=== PATIENT | female | born 1990 | race Caucasian/White ===

== ENCOUNTER 2018-08-22 05:24 | Inpatient (IN) | payer MEDICAID ==
[2018-08-22] MEDS ORDERED: LR 1,000 ML IV ONE (06:02)
[2018-08-22] MEDS ORDERED: PREGABALIN 150 MG CAP PO ONE (06:22)
[2018-08-22] MEDS ORDERED: SCOPOLAMINE HYDROBROMIDE 1 MG/3 DAYS PATCH TD ONE (06:22)
[2018-08-22] MEDS ORDERED: TRANEXAMIC ACID 1,000 MG in NS 100 ML IV ONE (06:22)
[2018-08-22] MEDS ORDERED: ceFAZolin 2 GM/DEXTROSE 100 ML IV ONE (06:22)
[2018-08-22] MEDS ORDERED: ACETAMINOPHEN 500 MG TAB PO ONE (06:22)
--- NOTE | 2018-08-22 06:22 | PDGENHP ---
History and Physical - Chief Complaint LEFT HIP PAIN - History of Present Illness 1. Bilateral~Femoroacetabular impingement (VANESSA) Cam type, labral tears 2. Bilateral~Hip Dyplasia, L more symptomatic than R 3. 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 ~Ramsesenjoys hiking, kayaking, being outdoors. Elisabet's~bilateral~hip pain (L>R)~started 10 yrs ago, with~no~recalled trauma or injury, and with~no~previous complaints.~She does report W-sitting and being pigeon-toed.~Ramseshas~a known history of hip dysplasia. She was referred by Dr. Marshall's office. Presentation today is of~anterior~bilateral~hip pain deep inside, worse on the L. ~The hip~does~wake her~at night and~does~click and catch on~her. Sitting~can be uncomfortable~for her~if she does so for long periods of time.~Ramsesdoes~ report suffering from lower back pain episodes, which started after her hip symptoms and she localizes to her SI joint.~ Ramseshas~participated in physical therapy x2 months~and has~tried other conservative measures including massage therapy.~Kamala~has not~received sufficient symptomatic improvement. No previous hip injection. Ramseshas~utilized medication for pain management, including diclofenac, tylenol, ibuprofen.~Ramseshas used medication as needed since symptom onset. Ramsesunderstands that~kamala~has a hip and pelvis problem which should be researched and wishes to get a better understanding of~her~hip status, followed by an establishment of a treatment strategy, hoping~kamala~would be able to get back to~her~well being active life. History: Past medical history:~~ Patient~~has a past medical history of Cancer (HC code).~- hepatoblastoma, complete remission Relevant familial history:~Brother and grandfather - "shallow shoulder joints" Past surgical history:~ No. Surgery Anesthesia Year Outcome 1 Abdomen tumor and gallbladder removal General 1992 Good 2 Bone chip removal R elbow General 2000 Good Ramsesdescribes problematic issues with general anesthesia which includes emotional/combative when she awakens from anesthesia. I have reviewed, verified and agree with the past medical, surgical, family and social history. Current Medications:~has a current medication list which includes the following prescription(s): diclofenac. ALLERGIES:~is allergic to adhesive and penicillins. Objective: Physical Examination: Ramsesis 5~feet~2~inches tall and weighs~140~Lbs. Ramsesis AAO x3; she~is well-nourished, in NAD. Skin is warm and dry. ~Breathing is non-labored. ~CV with RRR by pulse. Abdomen is soft, NTND. Currently,~kamala~walks with a~normal~gait. Trendelenburg sign is~negative~and proprioception~is reduced,~both~sides. She~presents~with mild~signs of joint laxity.~Beightons Score:~3 (palms to floor , pinkys) Lower spine examination is~negative~for sciatic or femoral nerve irritation with negative~SLR &~femoral stretch tests. Range of motion of the spine is normal~for flexion, extension, and rotations,~with~associated pain in extension. Strength, Sensation and pulses are~normal -~bilaterally Ankles and knees exams are~normal~and~no~mal-alignment is evident.~ She~has~right~0.5~cm short leg length discrepancy. Thigh circumference is~symmetric~with no evidence for muscle atrophy~on both~ sides. Hip ROM (degrees): FL ER At 90~hip FL IR At 90~hip FL AB AD EX IR Neutral hip ER Neutral hip R 105 45 50 35 5 5 60 15 L 105 45 45 40 0 5 60 15 Specific hip and pelvis tests: Impingement Test BOOGIE Roll Add. Longus R +++ +++ Negative Negative L +++ +++ Negative Negative Glut. Med ITB Posterior Imp R + 4+/5 strength Negative 4+/5 strength Negative L Negative 4+/5 strength Negative 4+/5 strength Negative Squeeze test measured~normal Bony Symphysis pubis is~painful~to touch (+)~while concentric activity of the rectus abdominis, does not~produce pain at its insertion. Ilio Psos specific tests are~negative for pain during cycling for~both hips~and remarkable for no snaps HF has~no pain~both hips. No~capsule tenderness bilaterally Greater trochanteric burse is~pain free~on both hips. Piriformis tests: FAIR is~negative,~with no~local signs of neuritis related to sciatic nerve. SIJs examination is~normal~with~normal~BOOGIE in relation and local tenderness. Hamstrings tests are~negative~tendinopathy both hips. On a daily basis, the following percentages reflect~Elisabet's overall total pain : Deep hip:~100% Imaging: Radiology studies which I~have personally reviewed, analyzed and measured are below: XR: AP of the hip and pelvis: Performed in a~fair~technique Coccyx to pubic symphysis distance~0.4~cm. 0~degrees caudal/cephal [place]~Lines are interrupted. Minimal~Pathological signs are seen in the Symphysis Pubis.~ Minimal~Pathological signs are seen at the Ischial~tuberosity. ~ Specific measurements show:~ XR~from~04/28/18 NSA~ LCE Sourcil~Angle Sharp's angle Lat. Cam Lat. Pincer C.Over~sign Head~Coverage % ATDmm R 142 -1 28 48 Neg Neg Neg 50% 29.8 L 144 3 25 51 Neg Neg Neg 54% 36.0 Pos. wall sign ISS NAD ~~Dysplasia Comments R + Negative 21.2~mm +++ L + Negative 23.3~mm +++ Sclerosis Sup. Lat. OA Cysts Joint Space-WBZ Joint Space-Medial R + Negative Negative 6.2~mm 5.0~mm L + Negative Negative 5.5~mm 5.7~mm X Table lateral:~XR from 02/16/18 Anterior cam lesion is~seen~on both hips. Alpha Angle: ~ Right~55~degrees Left~69~degrees MRI:~ 03/25/18 L hip:~1.5T scan. Some cartilage degeneration. No significant acetabular edema or cysts. Hypertrophic labrum. CT / 3D:~ 05/11/18 Right hip:No acetabular cysts. Minimal cam 12-3 o'clock. Lateral center edge angle: 5 degrees Anterior center edge angle: 16 degrees Equatorial acetabular version angle: 28 degrees anteverted. Cranial acetabular version angle: 20 degrees anteverted. Femoral neck shaft angle: 141 degrees Femoral neck version angle: Anteverted 18 degrees Femoral shaft torsion angle: +35 degrees Left hip:~No acetabular cysts. Minimal cam 12-3 o'clock Lateral center edge angle: 8 degrees Anterior center edge angle: 28 degrees Equatorial acetabular version angle: 32 degrees anteverted. Cranial acetabular version angle: 18 degrees anteverted. Femoral neck shaft angle: 149 degrees Femoral neck version angle: Anteverted 26 degrees Femoral shaft torsion angle: +28 degrees Impression and plan:~ Elisabet~is a~28 y.o.~active female~suffering from symptomatic~Bilateral~Hip Dyplasia~(L>>R pain)~causing significant disability to~her~and altering~her~ sport and life activities.~Physical examination, imaging, and~her~story correspond with the diagnosis mentioned above. I explained that hip dysplasia is a condition wherein the hip joint has excessive play~and instability due to a variety of factors, including the depth and adequacy of the socket, the orientation of the femur bone, and ligament laxity around the hip joint. Dysplasia ranges in severity from borderline to talia, with treatment options being specific to the specific nature of the problem. Left untreated, the instability in the hip joint can cause progressive tearing of the labrum and deterioration of the surface cartilage, ultimately resulting in progressive osteoarthritis of the hip. I explained that femoroacetabular impingement (VANESSA - Cam type) arises due to a bony or soft tissue conflict between the femur (ball) and acetabulum (socket) caused by an abnormality in the shape of the femoral head and neck. Over time, repetitive impingement can result in damage to the labrum and adjacent surface cartilage within the socket, ultimately giving rise to progressive osteoarthritis of the hip. I explained that although a labral tear can be a source of pain, it is rarely the root of the problem and typically occurs secondary to an underlying abnormality in the shape and mechanics of the hip joint. I reviewed conservative treatment options for Dysplasia and VANESSA including activity modification to avoid positions of impingement or instability, physical therapy, non-steroidal anti-inflammatory medications, and various injections (corticosteroid and PRP) aimed at reducing inflammation in the hip joint or/and preventing dynamic instability and impingement. PRP injections may promote healing and reduce symptoms in certain cases but it will not repair chronically damaged tissue. Although these measures may help to buy time~and reduce current level of symptoms, they are not a definitive solution to the problem given the underlying abnormality in the shape of the hip joint. Patients who have failed conservative management and continue to experience symptoms are candidates for definitive surgical treatment, which may consist of hip arthroscopy alone or in combination with more invasive bony realignment procedures of the hip socket and/or femur called periacetabular osteotomy (SHELLEY) or derotational femoral osteotomy (DFO). Hip arthroscopy typically includes treating the labrum with either repair or reconstruction of the torn labrum; as well as addressing the underlying abnormalities by restoring the normal shape to the hip joint. If the cartilage is damaged a Microfracture surgical procedure may also be necessary to help stimulate the growth of fibrocartilage. If a patient requires a labral reconstruction or a Microfracture, the initial rehabilitation from the surgery may take longer, but the rn long term care results are typically favorable. I reviewed the technical aspects of periacetabular osteotomy (SHELLEY) including risks, benefits, and expected course of recovery. Elisabet understands that SHELLEY is an inpatient procedure carried out through two medium sized incisions on the front and back of the hip joint. The hip socket is cut, realigned, and stabilized with 2 3 internal screws. Risks include infection, bleeding, injury to nearby nerves or vessels, stiffness, persistent pain, instability, failure of bony healing, implant related complications, and venous thromboembolic disease. Rarely, revision surgery may be required to address these problems. Risks, potential complications, side effects and recovery from surgical procedure were discussed in length. We explained how this surgery is an open procedure, and though patients tend to do well in the long-term, it involves significant pain in the first 2-4 weeks post-op and a rather lengthy rehab. Overall recovery takes approximately 6 12 months depending on the extent of damage and degree of repair. Elisabet understands that she will undergo hip arthroscopy 1 week prior to the SHELLEY to address damage inside the hip joint. Elisabet understands that hip arthroscopy and SHELLEY are two separate procedures that are best performed one week apart, with the arthroscopy commencing first to "tighten up" any pathology evident in the hip joint (labral repair, etc.) and the SHELLEY open procedure occurring 7-10 days later to realign the acetabulum. Ramseswill review the info presented. Ramseswill talk with our surgical orderly about possible surgery dates. She will schedule her SHELLEY with us approximately 1 wk after hip arthroscopy with Dr. Marshall. Ramsesis happy with this plan. I have also supplied~her~with handouts, outlining the expected surgical treatment and rehab involved. I wish~Elisabet~all the best, ~~ Evon Canales MD History Information - Allergies/Home Medication List Allergies/Adverse Reactions: Penicillins Allergy (Unknown, Verified 08/03/18 12:37) Unknown adhesive tape Allergy (Verified 08/03/18 12:37) Rash Home Medications: Diclofenac Sodium [Voltaren 75 MG (*)] 75 mg PO DAILY PRN 07/24/18 [Last Taken Unknown] I have personally reviewed and updated: medical history - Social History Smoking Status: Never smoked Review of Systems Review of Systems: Physical Exam Physical Exam: Temp Pulse Resp BP Pulse Ox 36.7 C 71 16 121/73 H 97 08/22/18 06:03 08/22/18 06:03 08/22/18 06:03 08/22/18 06:03 08/22/18 06:03
[2018-08-22] MEDS ORDERED: MIDAZOLAM 2 MG/2 ML VIAL IVP ONE (06:35)
[2018-08-22] MEDS ORDERED: MEPERIDINE 25 MG/0.5 ML AMP IVP PRN (06:36)
[2018-08-22] MEDS ORDERED: NALOXONE HCL 0.4 MG/ML INJ IVP PRN ×3 (06:36→15:16)
[2018-08-22] MEDS ORDERED: PHENYLEPHRINE HCL 100 MCG/ML SYR IVP PRN (06:36)
[2018-08-22] MEDS ORDERED: oxyCODONE IR 5 MG TAB PO PRN ×2 (06:36→16:30)
[2018-08-22] MEDS ORDERED: ONDANSETRON 4 MG/2 ML VIAL IVP PRN ×2 (06:36→15:14)
[2018-08-22] MEDS ORDERED: LR 500 ML IV PRN (06:36)
[2018-08-22] MEDS ORDERED: HYDROmorphONE/DILAUDID 2 MG/ML INJ IVP PRN (06:36)
[2018-08-22] MEDS ORDERED: PROMETHAZINE HCL 25 MG/ML INJ IVP PRN (06:36)
[2018-08-22] MEDS ORDERED: METOCLOPRAMIDE 10 MG/2 ML VIAL IVP PRN ×2 (06:36→15:16)
[2018-08-22] MEDS ORDERED: fentaNYL 100 MCG/2 ML INJ IVP PRN (06:36)
[2018-08-22] MEDS ORDERED: ONDANSETRON 4 MG/2 ML VIAL ONE ×2 (06:47→15:29)
[2018-08-22] MEDS ORDERED: ROCURONIUM 50 MG/5 ML VIAL ONE (06:47)
[2018-08-22] MEDS ORDERED: LIDOCAINE 2% 5 ML SDV ONE (06:47)
[2018-08-22] MEDS ORDERED: DEXAMETHASONE 4 MG/ML VIAL ONE (06:47)
[2018-08-22] MEDS ORDERED: fentaNYL 100 MCG/2 ML INJ ONE (06:48)
[2018-08-22] MEDS ORDERED: PROPOFOL 200 MG/20 ML VIAL ONE ×3 (06:48→14:27)
--- NOTE | 2018-08-22 07:12 | POSTANESTH ---
Post Anesthetic Evaluation Cardiovascular Status: Normal, Stable Respiratory Status: Normal, Stable Level of Consciousness/Mental Status: Can Participate in Eval Pain Control: Adequate, Prn Tx Ordered Nausea/Vomiting Control: Adequate, Prn Tx Ordered Complications Possibly Related to Anesthesia: None Noted
--- NOTE | 2018-08-22 07:12 | PDANEPAE ---
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 - Neurological & Psychiatric Hx Hx Neurological and Psychiatric Disorders: No - Cancer History Hx Cancer: Yes Cancer History Comment: liver as baby - Congenital Disorder History Hx Congenital Disorders: No - GI History Hx Gastrointestinal Disorders: Yes Gastrointestinal History Comment: heartburn occasionally - Other Health History Other Health History: none - Chronic Pain History Chronic Pain: No - Surgical History Prior Surgeries: aug 15 hip scope ANE Review of Systems Review of Systems: - Exercise capacity METS (RN): 6 METS ANE Patient History - Allergies Allergies/Adverse Reactions: Penicillins Allergy (Unknown, Verified 08/03/18 12:37) Unknown adhesive tape Allergy (Verified 08/03/18 12:37) Rash - Home Medications Home Medications: Diclofenac Sodium [Voltaren 75 MG (*)] 75 mg PO DAILY PRN 07/24/18 [Last Taken Unknown] - NPO status NPO Since - Liquids (Date): 08/21/18 NPO Since - Liquids (Time): 23:00 NPO Since - Solids (Date): 08/21/18 NPO Since - Solids (Time): 20:00 - Anes Hx Anes Hx: post operative nausea - Smoking Hx Smoking Status: Never smoked - Family Anes Hx Family Anes Hx: neg - N/A Family Hx Anesthesia Complications: brother and dad both violent when coming out of anesthesia ANE Labs/Vital Signs - Vital Signs Blood Pressure: 121/73 Heart Rate: 71 Respiratory Rate: 16 O2 Sat (%): 97 Height: 157.48 cm Weight: 63.503 kg ANE Physical Exam - Airway Neck exam: FROM Mallampati Score: Class 1 Mouth exam: normal dental/mouth exam - Pulmonary Pulmonary: no respiratory distress, no rales or rhonchi, clear to auscultation - Cardiovascular Cardiovascular: regular rate and rhythym, no murmur, rub, or gallop - ASA Status ASA Status: I ANE Anesthesia Plan Anesthesia Plan: general endotracheal anesthesia, spinal (Spinal for POPC)
[2018-08-22 08:16] LABS: PLATELET COUNT 246 10^3/uL (150-400)
[2018-08-22] MEDS ORDERED: PHENYLEPHRINE HCL 100 MCG/ML SYR ONE ×3 (09:36→12:01)
[2018-08-22] MEDS ORDERED: ceFAZolin 1 GM VIAL ONE (10:58)
[2018-08-22] MEDS ORDERED: METOCLOPRAMIDE 10 MG/2 ML VIAL ONE (11:02)
[2018-08-22] MEDS ORDERED: ePHEDrine SULFATE 25 MG/5 ML SYR ONE (11:35)
[2018-08-22] MEDS ORDERED: PHENYLEPHRINE 10 MG/ML SDV ONE (12:48)
[2018-08-22] MEDS ORDERED: CITRATE DEXTROSE SOLN 500 ML BAG ONE (13:25)
[2018-08-22] MEDS ORDERED: ACETAMINOPHEN 325 MG TAB PO PRN ×2 (15:14→15:16)
[2018-08-22] MEDS ORDERED: MAGNESIUM HYDROXIDE 30 ML UDCUP PO PRN (15:14)
[2018-08-22] MEDS ORDERED: DIAZEPAM 2 MG TAB PO PRN (15:14)
[2018-08-22] MEDS ORDERED: BISACODYL 10 MG SUPP PR PRN (15:14)
[2018-08-22] MEDS ORDERED: POLYETHYLENE GLYCOL 3350 17 GM PKT PO PRN (15:14)
[2018-08-22] MEDS ORDERED: LACTULOSE 20 GM/30 ML UDCUP PO PRN (15:14)
[2018-08-22] MEDS ORDERED: diphenhydrAMINE 25 MG CAP PO PRN (15:16)
[2018-08-22] MEDS ORDERED: HYDROmorphONE/DILAUDID 6 MG/30 ML PCA IV PRN (15:16)
[2018-08-22] MEDS ORDERED: oxyCODONE IR 15 MG TAB PO PRN (15:17)
[2018-08-22] MEDS ORDERED: PROMETHAZINE HCL 25 MG/ML INJ ONE (15:47)
--- NOTE | 2018-08-22 16:37 | PDMN ---
Medical Necessity Medical necessity: [facility] Musculoskeletal Surgery or Procedure, 28 yo s/p SHELLEY , [facility] IP only
[2018-08-22] MEDS: NS 1,000 ML IV SCH (17:13)
[2018-08-22] MEDS: oxyCODONE IR 5 MG TAB PO SCH (17:31)
--- NOTE | 2018-08-22 20:11 | SUROPNOTE ---
LAZARO Operative Report - Surgery Surgery was performed at [facility] on~08/22/18~ Diagnosis:~Left 1. Hip Acetabular Dysplasia ~ Operation: Left~Angie Acetabular Osteotomy (SHELLEY) Surgeon: Jamel Castano MD Guide Dog Trainer:~~Evon Mejia MD Anesthetic: General + spinal Procedure: General anesthetic. Antibiotics given. Cell saver in use. Fluoroscopy. Phase 1: Position lateral, diagonal skin incision between ischial tuberosity and greater trochanter as for posterior hip approach. Blunt split of glut max fibers. Identification of fat pad overlying sciatic nerve. Exposure of sciatic nerve under fat pad, gently retracting it away-medially to ischial tuberosity. Exposure of subcotoloid fossa proximal to short rotators. UsingPrecision saw, osteotomy of subcotoloid [id number] mm short of (lateral to) thesciatic notch. Closure of lateral cut. Patient is turned supine. Phase 2: Skin incision just distal to ASIS. Using diathermy the iliac spine was exposed and inguinal ligament + Sartorious were retracted medially, taking the LFCN with them, protecting it. Inner ilium was dissected from iliacus muscle bluntly , with a cob and swab. Dissection continued towards lateral superior ramus pubis. Using fluoroscopy an osteotomy of lateral superior ramus, just medial to tear drop, was performed with~curved fish mouth osteotome. Phase 3: Osteotomy lines of the ilium were marked with diathermy as pre planned according to XR/CT and expected correction of acatabulum. 2 Shanz screws were drilled into central acetabular fragment, corresponding with planned correction angles, in order to mobilize central acetabular fragment after osteotomy is complete. ~Iliac osteotomy was performed with reciprocating saw and while attempting to move~the main acetabular fragment to realign weight bearing position~the proximal madelin-stick area broke.~correction was then achieved using single madelin-stick and fish mount osteotome.~After confirmation of correction using fluoroscopy in AP and false profile planes, the fragment was fixed with~1 -~5.5mm~~full threaded~screw~and 4mm AIIS to SIJ screw and two plates of 3.5- 4mm screws. Iliac crest allograft was added to close the gap generated but the large bony correction required.~ Inguinal ligament and Sartorious were attached back to ASIS through drill holes. Incision was closed according to soft tissue layers. Skin was closed with~subdermal Monocryl. Final fluoro shots were obtained to confirm position/correction. After surgery~Elisabet~moved both lower limbs and had no NV motor compromise. Specimen - none Bleeding -~700ml Complication -~fracture of CAF which required plate fixation in addition to screws. Bleeding:~700~cc into cell-saver, 400~of blood products were returned to patient. Post op instructions: 1.~Non~weight bearing crutches for 6 weeks 2. Epidural analgesia for 24-48 hours 3. Continuous SCD 4. Aspirin 81 mg X1 day 5. Avoid hip flexion past~85~and hip External rotation. 6. PT according to my recommendations at follow up visit Kind regards, Dr. Jamel Castano .
[2018-08-22] MEDS: NAPROXEN SODIUM 220 MG TAB PO SCH (20:48)
[2018-08-22] MEDS: SENNOSIDES/DOCUSATE SODIUM TAB PO SCH (20:50)
[2018-08-23] MEDS: oxyCODONE IR 5 MG TAB PO SCH ×7 (01:45→22:37)
[2018-08-23] MEDS: NS 1,000 ML IV SCH ×2 (03:38→23:30)
[2018-08-23] MEDS: PANTOPRAZOLE SODIUM 40 MG TAB PO SCH (08:06)
[2018-08-23] MEDS: NAPROXEN SODIUM 220 MG TAB PO SCH ×3 (08:06→22:40)
[2018-08-23] MEDS: SENNOSIDES/DOCUSATE SODIUM TAB PO SCH ×2 (08:06→20:26)
--- NOTE | 2018-08-23 11:17 | ASMTCMCOM ---
CM Note CM Note Notes: Pt post op SHELLEY for hip dysplasia. PT rec home. Pt has DME. Anticipate pt will d/c with family support when medically stable following MD rec for outpatient PT. CM available for changes/needs. Date Signed: 08/23/2018 11:17 AM Electronically Signed By:MÓNICA Powell
--- NOTE | 2018-08-23 12:45 | GCON ---
[ rep st] CONSULTATION DATE OF CONSULTATION: 08/23/2018 REFERRING PHYSICIAN: Jamel Castano MD REASON FOR CONSULTATION: I was asked by Dr. Castano to see the patient in regard to her medical issu es. HISTORY OF PRESENT ILLNESS: This is a 28-year-old female who is now status post left-sided periaceta bular osteotomy by Dr. Castano. She is postoperative day #1. Per report, surgery was somewhat compl icated. There was an estimated blood loss of 700 cc, and 400 of those were returned via Cell Saver. She reports that she has no chest pain or shortness of breath, though she has been getting dizzy whe n she stands up. She has also had a headache. She has a history of hepatoblastoma as a child, which required a partial hepatic resection as well as cholecystectomy and chemotherapy. She has not neede d to follow up with an oncologist since then, though she would like to see one at some point in the [facility]. PAST MEDICAL/SURGICAL HISTORY: Hepatoblastoma. MEDICATIONS: She stopped all medications prior to surgery. ALLERGIES: Penicillin and adhesive tape. Penicillin allergy was as a child, and she does not know h er reaction. FAMILY HISTORY: Note there is no cancer in her family. She does have a few relatives with shoulder issues, one of them seemingly congenital. SOCIAL HISTORY: She drinks alcohol socially, but not in excess. She has never smoked. REVIEW OF SYSTEMS: A 10-point review of systems is conducted and is negative, except per History of Present Illness. PHYSICAL EXAM: VITAL SIGNS: Blood pressure 114/73, heart rate 86, respiration rate 16, saturating 9 7% on room air, temperature 37.1. GENERAL: The patient is a very pleasant female who is resting com fortably, in no acute distress. HEENT: Normocephalic, atraumatic. CARDIOVASCULAR: Regular rate an d rhythm. There are no murmurs, rubs, or gallops. PULMONARY: Shows her to be breathing comfortably . Her lungs are clear to auscultation bilaterally. ABDOMEN: Soft, nontender, nondistended. SKIN: No rash. : A Lynch catheter in place with clear urine. NEUROLOGIC: Alert and oriented x3. She is moving all extremities. PSYCHIATRIC: Normal mood and affect. EXTREMITIES: Left hip has surgic al incisions, which are clean. She has significant swelling in her upper left thigh. LABS: Hemoglobin is 9.5, down from 14. Basic metabolic panel is unremarkable. DATA: 1. I reviewed her chart, including her History and Physical by Dr. Castano, as well as his operative report. 2. I reviewed her perioperative fluoroscopy, which showed excellent postoperative alignment. IMPRESSION AND PLAN: 1. Acute blood-loss anemia. This is postoperative. She is likely symptomatic with this given some dizziness. She is also mildly tachycardic. We will recheck her hemoglobin again; I told her she may need a transfusion, although I do not think she qualifies for it yet. 2. History of hepatoblastoma. She will follow up with the appropriate clinic at [facility]. She does live in [place]. 3. Lynch. Will remove per Dr. Castano's instructions. 4. Tachycardia. Will follow this. This is most likely due to hypovolemia from blood loss. Thank you for allowing [facility] to participate in the care of this patient. We will continu e to follow with you. /[id number]/MODL
[2018-08-23] MEDS ORDERED: PROMETHAZINE HCL 25 MG/ML INJ IVP PRN (17:26)
--- NOTE | 2018-08-23 17:44 | PDPAINCON ---
Pain Management Consultation Patient referred by DrGloria: Tracey Osei - Subjective Pain is: high, but manageable Side effects include: No drowsy, No itchiness, No nausea - Objective Technique: spinal opioid Sensory and motor exam: block has resolved, no apparent ill effects Vital signs: stable - Assessment/Plan Assessment/Plan: pain well-controlled, continue current mgmt (POD 1 s/p SHELLEY with spinal duramorph which provided good analgesia until around 0430 today. Since then, pain has been managed with IV dilaudid and PO oxycodone with some difficulty. Patient denies any adverse effect of spinal. Pain management per ortho team at this point.)
[2018-08-23] MEDS: CYCLOBENZAPRINE 10 MG TAB PO PRN (19:04)
--- NOTE | 2018-08-23 21:38 | SOAPPROG ---
SOAP Progress Note Assessment/Plan: Assessment: 28 yo F POD#1 s/p L SHELLEY. Some issues with post-operative nausea/vomiting. 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 Castano Likely discharge over the weekend pending progress 08/23/18 21:35 Subjective: Patient reports significant nausea/vomiting that worsened her L hip/abdominal pain. Has had a difficult time catching up since then on pain control. Some dizziness as well. Objective: Vital Signs Temp Pulse Resp BP Pulse Ox 37.2 C 102 H 17 125/77 H 95 08/23/18 18:00 08/23/18 18:00 08/23/18 18:00 08/23/18 18:00 08/23/18 18:00 Laboratory Results 08/23/18 04:47 08/23/18 04:47 08/22/18 08/23/18 08/24/18 05:59 05:59 05:59 Intake Total 5530 310 Output Total 4852 3455 Balance 3275 -4665 Gen: Tearful L hip dressings c/d/i Dressings c/d/i Surgical area with appropriate bruising/edema Lateral thigh numbness in LFCN distribution 5/5 TA, GSC, EHL SILT throughout foot ICD10 Worksheet Patient Problems: Problems Problem Status Onset Hip dysplasia Acute - ICD10 Problem Qualifiers (1) Hip dysplasia
[2018-08-24] MEDS: oxyCODONE IR 5 MG TAB PO SCH ×6 (02:09→23:15)
[2018-08-24] MEDS: CYCLOBENZAPRINE 10 MG TAB PO PRN ×3 (02:18→21:01)
[2018-08-24] MEDS: ONDANSETRON DISINTEGRATING 4 MG TAB PO PRN ×2 (07:34→22:50)
[2018-08-24] MEDS: NAPROXEN SODIUM 220 MG TAB PO SCH ×3 (07:35→23:16)
[2018-08-24] MEDS: PANTOPRAZOLE SODIUM 40 MG TAB PO SCH (07:36)
[2018-08-24] MEDS: SENNOSIDES/DOCUSATE SODIUM TAB PO SCH ×2 (07:39→20:59)
[2018-08-24] MEDS: NS 1,000 ML IV SCH (09:29)
--- NOTE | 2018-08-24 14:46 | HOSPPROG ---
Hospitalist Progress Note Assessment/Plan: Elisabet is a 28 y/o female who had a L SHELLEY for hip dysplasia, first encounter, chart reviewed. *left hip dysplasia -POD#1 s/p L SHELLEY *nausea and vomiting -no c/o this today *acute blood loss anemia -post op setting -cont monitoring *hx of hepatoblastoma -f/u at [facility] *tachycardia -resolved *hypotension -asymptomatic *plan: dc RN LABOR DELIVERY (will have iv Dilaudid prn if needed), recheck labs in a.m. Subjective: Elisabet has c/o some light throbbing pain to left upper thigh, hip area but feels overall pain is well managed. Objective: Vital Signs Temp Pulse Resp BP Pulse Ox 37.3 C 92 12 104/71 99 08/24/18 14:00 08/24/18 14:00 08/24/18 14:00 08/24/18 14:00 08/24/18 14:00 Laboratory Results 08/24/18 04:38 08/23/18 04:47 08/23/18 08/24/18 08/25/18 05:59 05:59 05:59 Intake Total 5530 310 Output Total 2255 5925 2150 Balance 3275 -5615 -2150 - Physical Exam Constitutional: no apparent distress, appears nourished, uncomfortable Eyes: PERRL Ears, Nose, Mouth, Throat: hearing normal Cardiovascular: regular rate and rhythym Respiratory: no respiratory distress Gastrointestinal: normoactive bowel sounds Skin: other (left upper thigh, hip area w swelling) Musculoskeletal: generalized weakness Neurologic: AAOx3 Psychiatric: interacting appropriately ICD10 Worksheet Patient Problems: Problems Problem Status Onset Hip dysplasia Acute
[2018-08-24] MEDS: ASPIRIN EC 81 MG TAB PO SCH (16:18)
[2018-08-24] MEDS ORDERED: HYDROmorphONE/DILAUDID 1 MG/ML INJ IVP PRN (16:48)
--- NOTE | 2018-08-24 18:46 | SOAPPROG ---
SOAP Progress Note Assessment/Plan: Assessment: 2nd post op day Left Periacetabular Osteotomy Plan: DC [employer] Oxycodone SCDs Aspirin up with PT/OT X-ray tomorrow 08/24/18 18:44 Subjective: Elisabet is doing better this evening. Her pain has been well managed with Oxycodone, hasn't used the [employer] LEAD[employer] since this morning. She has been up with PT/OT. She denies any cp, sob or nausea. Objective: Vital Signs Temp Pulse Resp BP Pulse Ox 37.2 C 92 14 107/71 96 08/24/18 17:55 08/24/18 17:55 08/24/18 17:55 08/24/18 17:55 08/24/18 17:55 Laboratory Results 08/24/18 04:38 08/23/18 04:47 08/23/18 08/24/18 08/25/18 05:59 05:59 05:59 Intake Total 5530 310 400 Output Total 2255 5925 2150 Balance 3275 -5615 -1750 Well appearing in NAD Left hip: dressings clean dry intact ecchymosis and edema some thigh numbness NVI distally Full ROM of foot and ankle - Pending Discharge Pending Discharge Within 48 Hours: Yes Pending Discharge Date: 08/26/18 Pending Discharge Time: 11:00 ICD10 Worksheet Patient Problems: Problems Problem Status Onset Hip dysplasia Acute
[2018-08-25] MEDS: oxyCODONE IR 5 MG TAB PO SCH ×5 (02:39→17:33)
[2018-08-25] MEDS: SENNOSIDES/DOCUSATE SODIUM TAB PO SCH (08:32)
[2018-08-25] MEDS: NAPROXEN SODIUM 220 MG TAB PO SCH ×2 (08:32→16:52)
[2018-08-25] MEDS: ASPIRIN EC 81 MG TAB PO SCH (08:32)
[2018-08-25] MEDS: PANTOPRAZOLE SODIUM 40 MG TAB PO SCH (08:32)
--- NOTE | 2018-08-25 09:35 | HOSPPROG ---
Hospitalist Progress Note Assessment/Plan: Elisabet is a 28 y/o female who had a L SHELLEY for hip dysplasia. *left hip dysplasia -POD#2 s/p L SHELLEY *nausea and vomiting -no c/o this today *acute blood loss anemia -post op setting -cont monitoring *hx of hepatoblastoma -f/u at [facility] *tachycardia -resolved *hypotension -asymptomatic *plan: doing well this morning, pain well managed, had a bowel movement last evening. Subjective: Elisabet is feeling well this morning, pain wel controlled. Objective: Vital Signs Temp Pulse Resp BP Pulse Ox 36.9 C 97 14 116/58 L 96 08/25/18 07:56 08/25/18 07:56 08/25/18 07:56 08/25/18 07:56 08/25/18 07:56 Laboratory Results 08/25/18 04:24 08/23/18 04:47 08/24/18 08/25/18 08/26/18 05:59 05:59 05:59 Intake Total 310 400 Output Total 5925 2450 400 Balance -5615 -2049 -400 - Physical Exam Constitutional: no apparent distress, appears nourished, not in pain Eyes: PERRL Ears, Nose, Mouth, Throat: hearing normal Cardiovascular: regular rate and rhythym Respiratory: no respiratory distress Gastrointestinal: normoactive bowel sounds Skin: warm, other (swelling left hip and upper thigh area), No normal color ( pale) Musculoskeletal: generalized weakness Neurologic: AAOx3 Psychiatric: interacting appropriately ICD10 Worksheet Patient Problems: Problems Problem Status Onset Hip dysplasia Acute
[2018-08-25] MEDS: ONDANSETRON DISINTEGRATING 4 MG TAB PO PRN ×2 (10:08→17:32)
[2018-08-25 12:21] VITALS: BP 109/65
[2018-08-25] MEDS: CYCLOBENZAPRINE 10 MG TAB PO PRN (12:34)
--- NOTE | 2018-08-25 14:24 | SOAPPROG ---
MASON Progress Note Assessment/Plan: Assessment: 3rd post op day Left Periacetabular Osteotomy Plan: DC Home See Discharge instructions 08/24/18 18:44 08/25/18 14:21 Subjective: Elisabet is doing well today. COPY CLERK was turned off and she is well pain managed with Oxycodone and Flexeril. She denies any cp, sob, or nausea. She is ready to go home. Objective: Vital Signs Temp Pulse Resp BP Pulse Ox 37.0 C 98 16 109/65 97 08/25/18 12:00 08/25/18 12:00 08/25/18 12:00 08/25/18 12:00 08/25/18 12:00 Laboratory Results 08/25/18 04:24 08/23/18 04:47 08/24/18 08/25/18 08/26/18 05:59 05:59 05:59 Intake Total 310 400 Output Total 5925 2450 750 Balance -5615 -2050 -750 Well appearing in NAD Left Hip: dressings clean dry intact some ecchymosis and edema thigh numbness NVI distally full ROM of foot and ankle X-ray shows good bone, plate and screw fixation - Pending Discharge Pending Discharge Within 24 Hours: Yes Pending Discharge Date: 08/26/18 Pending Discharge Time: 11:00 ICD10 Worksheet Patient Problems: Problems Problem Status Onset Hip dysplasia Acute
--- NOTE | 2018-08-28 17:20 | GDS ---
[f rep st] DISCHARGE SUMMARY The patient underwent a left hip periacetabular osteotomy for left hip acetabular dysplasia on 2018. Intraoperatively, spinal and Lynch catheters were placed. Lynch was discontinued by her 2nd p ostoperative day. She was well pain managed with NASCAR RACER and oral analgesia. She was up with Physical T herapy. Pelvis x-rays obtained on her 3rd postoperative day showed good bone, screw, and plate fixat ion, and she was discharged on her 3rd postoperative day in good condition. She will go home with se quential compression devices to be worn 24 hours a day, 7 days a week for 2 weeks and thereafter only at night for another week. She will be using 81 mg baby aspirin daily for 1 month. Both of these f or DVT prophylaxis. She will be nonweightbearing on her left lower extremity for 6-8 weeks. She kulwinder l follow up with Dr. Castano in 2 weeks time. She will finish the naproxen prescription. She was di donna in good condition. /[id number]/MODL
== END 2018-08-25 17:48 | disposition home or self-care (01) | DRG 320 ==
LOC: F3N 05:24 → UNDOADMIN 05:48 → F3N 16:31
PROVIDERS: ADMIT Orthopaedic Surgery Sports Medicine; ATTEND Orthopaedic Surgery Sports Medicine
DX: Q65.89 Other specified congenital deformities of hip (principal); D62 Acute posthemorrhagic anemia; R00.0 Tachycardia, unspecified; R11.2 Nausea with vomiting, unspecified; Z85.05 Personal history of malignant neoplasm of liver
CPT/HCPCS: 97116-GP; 97161-GP; 97166-GO; 97530-GP; 97535-GO; C1713; C1769; J0690; J1100; J1170; J2250; J2370; J2405; J2550; J2704; J2765; J3010